=== PATIENT | male | born 1995 | race African-American/Black ===

== ENCOUNTER 2021-02-11 12:57 | Emergency (ER) | payer BC ==
[~2021-02-11] VITALS: Ht 167.6 cm; Wt 77.0 kg
[2021-02-11] MEDS ORDERED: IBUPROFEN 600MG TABLET PO ONE (14:15)
[2021-02-11] MEDS ORDERED: IBUP-2029 MT (17:18)
[2021-02-11 17:46] VITALS: BP 121/78
== END 2021-02-11 17:47 | disposition home or self-care (01) ==
LOC: ER 12:57
DX: S62.162A Displaced fracture of pisiform, left wrist, initial encounter for closed fracture (principal); R10.84 Generalized abdominal pain; M79.662 Pain in left lower leg; V23.4XXA Motorcycle driver injured in collision with car, pick-up truck or van in traffic accident, initial encounter; Y93.89 Activity, other specified; Y92.488 Other paved roadways as the place of occurrence of the external cause; I51.9 Heart disease, unspecified; Z95.2 Presence of prosthetic heart valve
CPT/HCPCS: 29125; 73110; 73590; 74018; 99284